=== PATIENT | male | born 1980 | race Hispanic/Latino ===

== ENCOUNTER → 2023-03-21 16:00 | Outpatient (CLI) | payer OTHER, SELFPAY ==
--- NOTE | 2023-03-21 16:02 | DI.US.S_ITS ---
PROCEDURE: US SCROTUM INDICATIONS: INFERTILITY TECHNIQUE: Real-time scanning was performed of the scrotum and testicles, with image documentation. Color and pulse Doppler interrogation was performed of both testicles. COMPARISON: None. FINDINGS: Right: Testicle is normal in size at 4.7 x 2.2 x 3.8 cm, and homogenous in echotexture. Epididymis is unremarkable in overall size and morphology. 6 mm epididymal head cyst. No varicoceles. Small hydrocele. Overlying scrotal skin is normal in thickness. Left: Testicle is normal in size at 4.4 x 2.0 x 3.4 cm, and homogeneous in echotexture. Epididymis is normal in overall size and morphology. No hydrocele or varicoceles. Overlying scrotal skin is normal in thickness. Doppler: Color and pulse Doppler demonstrate normal and symmetric arterial flow in both testicles. IMPRESSION: No evidence of testicular torsion or epididymo-orchitis. Small right hydrocele. Dictated by: Aníbal Vasquez M.D. on 03/21/2023 at 17:58 Approved by: Aníbal Vasquez M.D. on 03/21/2023 at 18:01
== END ==
PROVIDERS: PCP Physician Assistant; Referring Provider Specialist; Visit Provider Specialist
DX: I86.1 Scrotal varices (principal); N46.9 Male infertility, unspecified; N43.3 Hydrocele, unspecified
CPT/HCPCS: 76870